=== PATIENT | male | born 1940 | race Caucasian/White ===

== ENCOUNTER 2018-02-01 07:00 | Day surgery (SDC) | payer MEDICARE ==
[2018-01-31 10:07] LABS: BASOPHILS 0.3 % (0-2); EOSINOPHILS 1.4 % (0-7); HEMATOCRIT 38.5 % (42.0-54.0); HEMOGLOBIN 12.9 g/dL (13.5-17.5); LYMPHOCYTES 16.6 % (15-50); MCH 31.9 pg (26.0-34.0); MCHC 33.5 g/dL (31.0-37.0); MCV 95.1 fL (80.0-100.0); MEAN PLATELET VOLUME 8.2 fL (7.4-10.4); MONOCYTES 8.2 % (2-11); NEUTROPHILS 73.5 % (40-80); PLATELET COUNT 325 10x3/uL (130-400); RBC 4.05 10x6/uL (4.20-6.10); RDW 13.7 % (11.5-14.5); WBC 6.9 10x3/uL (4.8-10.8)
[2018-01-31 10:16] LABS: APTT 27.8 SECONDS (22.8-39.4); INR 1.04 (0.85-1.17); PROTIME 13.2 SECONDS (11.6-15.0)
[~2018-02-01] VITALS: Ht 172.7 cm; Wt 65.8 kg
--- NOTE | ~2018-02-01 | OP ---
PATIENT NAME: BILL DODGE MEDICAL RECORD: [id number] :41 LOCATION:[facility] ADMISSION DATE: SURGEON: SANTO HONG MD DATE OF OPERATION: 02/01/2018 SURGEON: Santo Hong MD ANESTHESIA: General anesthesia by Dr. Santo Saucedo. 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 PROCEDURE: Cystoscopy and GreenLight laser transurethral resection of the prostate, power level 80 cerda. Total energy 95,941 kilojoules. Laser on time is 20 minutes and 52 seconds. SPECIMENS: None. ESTIMATED BLOOD LOSS: Minimal. FINDINGS: On cystoscopy, trilobar hyperplasia with large median lobe. No bladder cancer. Single ureteral orifices bilaterally. CLINICAL HISTORY: This is a 77-year-old male, who is visiting [place] from [place], [place]. They plan to leave back to [place] at the end of February this year. Soon after he left [place], he developed urinary retention and now he is performing self-intermittent catheterization. Latest PSA in June of 2017 is 0.2. His postvoid residual when he had the catheter inserted in the Emergency Room was 1200 mL. He apparently catheterizes 2-3 times per day and he has a postvoid residual after attempting to void of about 250 mL. He is getting rather tired of having to perform intermittent catheterization and therefore, he chose to have a GreenLight TURP performed while he is here. Risks of surgery were explained to him including the possible development of stress or urge urinary incontinence, blood loss, infection, and persistence of urinary retention. HE IS ALLERGIC TO PENICILLIN. He was given Levaquin IV general production worker to the OR. DESCRIPTION OF PROCEDURE: The patient was given induction of general anesthesia. He was then placed into dorsal lithotomy position and prepped and draped. The 30-degree lens was used with the laser resectoscope. The penile urethra was normal with no strictures. Prostatic urethra shows trilobar hyperplasia with a very large median lobe. The verumontanum was rather flat, but visible. Going into the bladder, he has a trabeculated bladder. No bladder tumors were seen. The left ureteral orifice was easily seen, but the right ureteral orifice could not be seen as it was hidden by the median lobe of the bladder neck. However, its location could be approximated by the prominent trigonal ridge. At this point, we introduced the laser fiber. We started with 80 cerda. Initially, I started to create a channel through the posterior wall going from the bladder neck just proximal to the verumontanum. As we were doing this and moving the laser fiber distally towards the verumontanum, we encountered quite significant bleeding from the mid portion of the prostate. This made visibility very difficult. The only solution to this is to continue to keep burning away tissue until we have full coagulation. Once we got the bleeding finally under control, I realize that the verumontanum had actually been vaporized also. However, we did stop the laser energy prior to reaching the external urinary sphincter. We were then able to take down the bladder neck OPERATIVE REPORT [id number] BILL DODGE and take down the right and left lateral lobes in turn. In many areas we encountered prostatic stones, which would indicate that we are in the plane between the BPH and this compressed pseudocapsule of the prostate. At that point, we removed elsewhere. At the end of the procedure, there was still some shaggy tissue from the prostatic stroma, but there was a wide open channel from the bladder neck to the level of the external urinary sphincter. No bleeding was seen. Any bleeding that we did encounter was treated with the coagulation setting of the laser. The scope was then removed and the laser was turned off. We placed an 18-Irish 3-way Pascal catheter into the bladder. The balloon was filled with 25 cc of sterile water. The inflow port was capped with a catheter plug. The catheter was put to leg bag drainage. The patient will be going home today. I will see him in followup tomorrow to remove the Pascal catheter for a voiding trial. TRANSINT:[id number] Voice Confirmation ID: [id number] DOCUMENT ID: [id number] SANTO HONG MD at 1724 CC: [id number] DICTATION DATE: 02/01/18 1203 CONTRACT LOADER: 02/01/18 1301 [facility] [address] [id number]
--- NOTE | ~2018-02-01 | OP ---
PATIENT NAME: BILL DODGE MEDICAL RECORD: [id number] :41 LOCATION:[facility] ADMISSION DATE: SURGEON: SANTO HONG MD DATE OF OPERATION: 02/01/2018 SURGEON: Santo Hong MD ANESTHESIA: MAC by Eamon Valle CRNA PREOPERATIVE DIAGNOSIS: Postoperative urinary retention. PROCEDURE: Cystoscopy and insertion of Pascal catheter over a guidewire. FINDINGS: Recently resected prostate with no acute bleeding. Irregular tissue of the prostatic urethra made catheter passage difficult. BLOOD LOSS: None. CLINICAL HISTORY: This is a 77-year-old male, who has urinary retention. This morning, he had a GreenLight laser TURP. At that time, I placed an 18-Dominican 3-way Pascal catheter, I thought, into the bladder. In the preop holding area where he was brought back to, the nurses noted that the catheter was not draining. She attempted to deflate the balloon and push it in further, but it would not go in. Therefore, I asked her to remove the catheter and she did this. The patient was still unable to void. He had last drank clear liquids at 2:00 p.m. today. We did have to wait sometime before we could bring him back to the OR to attempt repeat passage of a catheter under direct vision using a cystoscope. Since he was given Levaquin IV preoperatively this morning, he does not need another dose of antibiotics. DESCRIPTION OF PROCEDURE: The patient was given IV sedation. He was then placed in dorsal lithotomy position and prepped and draped. Lidocaine jelly was inserted into the urethra. A 21-Dominican cystoscope with 30-degree lens was used for visualization. The prostatic urethra was irregular due to the resection from this morning. The scope easily passed through the resected prostatic urethra into the bladder. A Sensor wire was placed through the scope into the bladder. The scope was then removed, leaving the Sensor wire in place. A 22-Dominican 3-way Pascal catheter Councill tip was placed over the wire and directly into the bladder. There was significant resistance in passing the catheter through the resected prostatic urethra due to resistance of the irregular tissue there. I did make sure that the catheter was fully in the bladder and we were seeing drainage from the bladder from the catheter. The balloon was inflated with 30 cc of sterile water. The wire was then finally removed entirely. The catheter was put to bag drainage. The patient will be going home today. I will see him in followup in two weeks to remove the Pascal catheter for a voiding trial. TRANSINT:[id number] Voice Confirmation ID: [id number] DOCUMENT ID: [id number] OPERATIVE REPORT [id number] BILL DODGE, SANTO Quiñones MD at 1856 CC: [id number] DICTATION DATE: 02/01/18 173 [employer]SPORT INSTRUCTOR: 02/01/18 1833 [facility] 02/01/[address] [id number]
[~2018-02-01 07:00] MED LIST: ALEVE220 MG PO; CENTRUM SILVER1 TA1 PO; CIPRO500 MG PO; FLOMAX0.4 MG PO; MOBIC7.5 MG PO
[2018-02-01 07:22] VITALS: BP 122/60; Ht 172.7 cm; Wt 65.8 kg
== END 2018-02-01 18:00 | disposition home or self-care (01) ==
LOC: D.OPS 07:00
PROVIDERS: Anesthesiology
DX: R33.9 Retention of urine, unspecified (principal); N40.1 Benign prostatic hyperplasia with lower urinary tract symptoms; Z01.812 Encounter for preprocedural laboratory examination